=== PATIENT | female | born 1975 ===

== ENCOUNTER 2017-01-13 10:25 | Day surgery (SDC) | payer OTHER, SELFPAY ==
[2016-12-03 10:47] VITALS: BMI 24.3
[2017-01-13 11:16] VITALS: RESP 18
[2017-01-13] MEDS ORDERED: Bupivacaine 0.5% Inj(30mL) ONE (12:21)
[2017-01-13] MEDS ORDERED: Propofol 10 mg/ml Inj (20 ML) ONE (12:34)
[2017-01-13] MEDS ORDERED: Neostigmine Methylsulfate 2 MG/2 ML ML IV ONE (12:34)
[2017-01-13] MEDS ORDERED: Succinylcholine 200 mg/10 ml Inj IV ONE (12:34)
[2017-01-13] MEDS ORDERED: Midazolam 2 MG/2 ML VIAL ONE (12:34)
[2017-01-13] MEDS ORDERED: Rocuronium 10 mg/ml (5 ml) ONE (12:37)
[2017-01-13] MEDS ORDERED: Lidocaine 4% (Laryng-O-Jet) Kit MM ONE (12:45)
[2017-01-13] MEDS ORDERED: Lactated Ringer's 1,000 ML IV ONE ×2 (13:11→14:56)
[2017-01-13] MEDS ORDERED: Sterile Water 10 ML IV ONE (13:20)
[2017-01-13] MEDS ORDERED: ePHEDrine 50 mg/ml Inj ONE (13:20)
[2017-01-13] MEDS ORDERED: Lactated Ringer's 1,000 ML IV SCH (14:30)
[2017-01-13] MEDS: HYDROmorphone 0.5 mg/0.5 ml ISec IVP PRN ×4 (14:31→15:28)
--- NOTE | 2017-01-13 15:52 | PCM.SURG1 ---
Surgeon's Initial Post Op Note - Surgeon's Notes Surgeon: Jacky Blanker Press Operator: [id number] Type of Anesthesia: General Endo Pre-Operative Diagnosis: Cholelithiasis Operative Findings: Cholelithiasis, adhesions Post-Operative Diagnosis: Cholelithiasis Operation Performed: Laparoscopic cholecystectomy Specimen/Specimens Removed: gallbladder Estimated Blood Loss: EBL {In ML}: 15 Blood Products Given: N/A Drains Used: No Drains Post-Op Condition: Good Date of Surgery/Procedure: 01/13/17 Time of Surgery/Procedure: 13:30
[2017-01-13] MEDS ORDERED: Oxycodone/Acetaminophen 5/325 mg Tab PO ONE ×2 (15:53→18:10)
--- NOTE | 2017-01-13 16:12 | CP.SDSHP ---
Same Day Surgery H & P - Allergies Allergies: Allergies No Known Allergies Allergy (Verified 09/12/14 21:45) - Physical Exam Vital Signs: Vital Signs 01/13/17 01/13/17 01/13/17 11:14 11:20 14:16 Temperature 97.6 F 96.7 F L Pulse Rate 68 68 76 Respiratory 18 18 Rate Blood Pressure 118/78 107/71 O2 Sat by Pulse 98 100 Oximetry 01/13/17 01/13/17 01/13/17 14:31 14:43 14:58 Temperature 97.1 F L Pulse Rate 63 56 L 55 L Respiratory 18 18 18 Rate Blood Pressure 120/70 120/66 120/69 O2 Sat by Pulse 100 100 100 Oximetry 01/13/17 15:28 Temperature 97.6 F Pulse Rate 55 L Respiratory 18 Rate Blood Pressure 110/69 O2 Sat by Pulse 100 Oximetry Short Stay Discharge - Short Stay Discharge Admitting Diagnosis/Reason for Visit: K80.20 Disposition: HOME/ ROUTINE Medications: oxyCODONE/Acetaminophen [Percocet 5/325 mg Tab] 1 ea PO Q4H PRN #14 tab PRN Reason: Pain, Moderate (4-7) Referrals: Angel Rico MD [Primary Care Provider] - Follow-up: [facility] Additional Instructions (Diet, Activity): Regular Diet Call for fever more than 101 and pain uncontrolled by meds. Ok to shower in 24hours No heavy lifting more than 10 lbs for 2 weeks Follow up with Dr Rico in the office in 2 weeks Rx in chart Progress Note/Discharge Note with Instructions: Vss, tolerating po. Dressings dry and intact. Stable postop
[2017-01-13 18:51] VITALS: BP 112/62; PULSE 72; TEMP 98.3; O2SAT 100
--- NOTE | 2017-01-13 19:20 | OP ---
PROCEDURE DATE: 01/13/2017 SURGEON: Dr. Rico PANTS CUTTER: Dr. Lauren ANESTHESIA: General. ANESTHESIOLOGIST: Dr. Hartmann PREOPERATIVE DIAGNOSIS: Cholelithiasis. POSTOPERATIVE DIAGNOSIS: Cholelithiasis. PROCEDURE: Laparoscopic cholecystectomy. DESCRIPTION OF OPERATION: With the patient in the supine position under adequate general anesthesia, the abdomen was prepped and draped in the usual sterile manner. Veress needle puncture was performe d at the umbilicus with insufflation to 15 cm water pressure of CO2 and a 10 mm laparoscopic trocar w as inserted via an infraumbilical incision. Under direct vision, additional trocars were inserted in the epigastrium and right costal margin. The gallbladder was identified. It was soft and not acute ly inflamed. The gallbladder fundus was grasped and elevated. Extensive omental adhesions to the pe ritoneal surface of the gallbladder in the infundibular region were cleared to fully expose the infun dibulum and a single adhesion to the duodenum was also cleared. The infundibulum was grasped and ret racted laterally. There were noted to be multiple small stones within the infundibular portion of th e gallbladder. The cystic artery was identified passing anterior to the region of the cystic duct. The cystic artery was dissected, then triply clipped and divided to expose the cystic duct. The cyst ic duct was then completely cleared toward the common bile duct and visualized anteriorly and posteri george at its entry into the gallbladder. The cystic duct was then triply clipped and divided. The ga llbladder was dissected free of the liver bed using electrocautery. The liver bed was inspected for hemostasis and the dissection was completed. The gallbladder was placed in a specimen retrieval bag and removed via the umbilical port site. Right upper quadrant was irrigated and suctioned. The pneu moperitoneum was released and the trocars were removed. The umbilical port site was closed with a fi [id number] fascial suture of 0 Vicryl. All incisions were closed with 4-0 Monocryl subcuticular s utures and Steri-Strips. Dry sterile dressings were applied. The patient tolerated the procedure we ll and transferred to recovery room in stable condition. Estimated blood loss for the procedure was 15 mL. Angel Rico MD cc: 58 TT: 01/13/2017 19:19:52 sn
== END 2017-01-13 19:18 | disposition home or self-care (01) ==
LOC: H.OPSURG 10:25
PROVIDERS: ATTEND Specialist
DX: K80.20 Calculus of gallbladder without cholecystitis without obstruction (principal)